=== PATIENT | female | born 1960 | race Caucasian/White ===

== ENCOUNTER → 2019-07-04 | Outpatient (CLI) | payer MEDICARE ==
--- NOTE | 2019-07-04 15:22 | PCVCIMAG ---
EXAM: BILATERAL CAROTID DUPLEX INDICATION: Carotid Occlusive Disease. Status post bilateral carotid endarterectomies. FINDINGS: Doppler Measurements (centimeters per second): RIGHT: Peak CCA-67, Peak ECA-142, Diastolic ICA-24, Peak ICA-116, ICA/CCA Ratio-1.7. LEFT: Peak CCA-61, Peak ECA-388, Diastolic ICA-126, Peak ICA-467, ICA/CCA Ratio-7.7. RIGHT CAROTID: The carotid bulb has moderate plaque. The proximal internal carotid artery shows <40% stenosis. The common carotid artery shows no significant stenosis. The external carotid artery shows 40% stenosis. LEFT CAROTID: The carotid bulb has moderate plaque. The proximal internal carotid artery shows >90% stenosis. The common carotid artery shows no significant stenosis. The external carotid artery shows 90% stenosis. Antegrade flow in both vertebral arteries. IMPRESSION: <40% stenosis of the right internal carotid artery with moderate plaque. >90% stenosis of the left internal carotid artery with moderate plaque. LOC:[place] [id number]
--- NOTE | 2019-07-04 15:30 | PCVCIMAG ---
EXAM: ARTERIAL DUPLEX LEFT UPPER EXTREMITY INDICATION: Arterial disease. Left arm pain. FINDINGS: Left arm: Increased systolic velocity of 363 cm/s proximal left subclavian artery consistent with 70% stenosis. Mildly blunted arterial waveforms in the mid/distal subclavian, left axillary, left brachial, left radial, and left ulnar arteries without additional stenoses seen. Right arm systolic pressure 166 mmHg and left arm 134 mmHg. IMPRESSION: 70% stenosis proximal left subclavian artery appears to be hemodynamically significant as reviewed above. LOC:[id number]
--- NOTE | 2019-07-05 09:27 | PCVCIMAG ---
APPROVED REPORT Study performed: 07/04/2019 14:50:35 EXAM: Comprehensive 2D, Doppler, and color-flow Echocardiogram Patient Location: Echo lab Room #: 2Status: routine BSA: 1.87 HR: 93 bpmBP: 166/78 mmHg Rhythm: NSR Other Information Study Quality: Fair Risk Factors: Cardiac Risk Factors: HTN, Hyperlipidemia, Smoking Indications CVA/TIA Dyspnea Chest Pain Hypertension/HDD 2D Dimensions IVSd: 9.88 (7-11mm)LVOT Diam: 20.42 (18-24mm) LVDd: 45.64 mm PWd: 7.35 (7-11mm)Ascending Ao: 28.71 (22-36mm) LVDs: 22.94 (25-40mm) Left Atrium: 37.92 (27-40mm) Aortic Root: 24.07 mm LV Single Plane 4CH: 62.81 % LV Single Plane 2CH: 77.39 % Biplane EF: 71.0 % Volumes Left Atrial Volume (Systole) Single Plane 4CH: 31.73 mLSingle Plane 2CH: 23.75 mL Biplane LA Volume: 29.00 mLLA ESV Index: 15.00 mL/m2 Aortic Valve AoV Peak Angelo.: 1.44 m/s AO Peak Gr.: 8.31 mmHgLVOT Max P.53 mmHg LVOT Max V: 0.94 m/s [place] Vmax: 2.13 cm2 Mitral Valve E/A Ratio: 0.7 MV Decel. Time: 210.03 ms MV E Max Angelo.: 0.69 m/s MV A Angelo.: 0.99 m/s IVRT: 72.66 ms TDI E/Lateral E': 9.86E/Medial E': 13.80 Medial E' Angelo.: 0.05 m/s Lateral E' Angelo.: 0.07 m/s Pulmonary Valve PV Peak Angelo.: 0.96 m/sPV Peak Gr.: 3.66 mmHg Pulmonary Vein P Vein S: 0.67 m/sP Vein A: 0.54 m/s P Vein D: 0.37 m/sP Vein A Dur.: 72.7 msec P Vein S/D Ratio: 1.81 Tricuspid Valve TV Vmax: 0.57 m/s Left Ventricle The left ventricle is normal size. There is normal LV segmental wall motion. There is normal left ventricular wall thickness. Left ventricular systolic function is hyperdynamic. LVEF is >70%. Grade I - abnormal relaxation pattern. Findings suggest the left atrial pressure is elevated. Right Ventricle The right ventricle is normal size. The right ventricular systolic function is normal. Atria The left atrium size is normal. The right atrium size is normal. Aortic Valve The aortic valve is normal in structure. No aortic regurgitation is present. There is no aortic valvular stenosis. Mitral Valve The mitral valve is normal in structure. There is no mitral valve regurgitation noted. No evidence of mitral valve stenosis. Tricuspid Valve The tricuspid valve is normal in structure. No apparent pulmonary hypertension. No tricuspid regurgitation. Pulmonic Valve The pulmonary valve is normal in structure. There is no pulmonic valvular regurgitation. Great Vessels The aortic root is normal in size. The ascending aorta is normal in size. Aortic arch is normal in caliber. IVC is normal in size and collapses >50% with inspiration. Pericardium There is no pericardial effusion. There is no pleural effusion. <Conclusion> The left ventricle is normal size. There is normal left ventricular wall thickness. Left ventricular systolic function is hyperdynamic. Grade I - abnormal relaxation pattern. The right ventricle is normal size. The left atrium size is normal. The right atrium size is normal. The aortic valve is normal in structure. The mitral valve is normal in structure. No apparent pulmonary hypertension. No tricuspid regurgitation.
== END | disposition home or self-care (01) ==
LOC: PCVCIMAG 13:24
PROVIDERS: ATTEND Internal Medicine Cardiovascular Disease
DX: I65.23 Occlusion and stenosis of bilateral carotid arteries (principal); I73.9 Peripheral vascular disease, unspecified; R09.89 Other specified symptoms and signs involving the circulatory and respiratory systems; M79.602 Pain in left arm; R06.00 Dyspnea, unspecified; R07.9 Chest pain, unspecified; I10 Essential (primary) hypertension; I63.9 Cerebral infarction, unspecified; I25.10 Atherosclerotic heart disease of native coronary artery without angina pectoris; E11.9 Type 2 diabetes mellitus without complications; F17.200 Nicotine dependence, unspecified, uncomplicated; I77.1 Stricture of artery; Z79.82 Long term (current) use of aspirin; Z79.899 Other long term (current) drug therapy; Z88.8 Allergy status to other drugs, medicaments and biological substances; Z72.89 Other problems related to lifestyle
CPT/HCPCS: 93306; 93880; 93931; G0463

== ENCOUNTER → 2019-07-11 | Outpatient (CLI) | payer MEDICARE, MEDICAID | END | disposition home or self-care (01) | LOC: PCVCCLINIC 15:13 | PROVIDERS: ATTEND Nuclear Medicine Nuclear Cardiology | DX: I77.1 Stricture of artery (principal); I77.9 Disorder of arteries and arterioles, unspecified; I25.10 Atherosclerotic heart disease of native coronary artery without angina pectoris; I10 Essential (primary) hypertension; E78.00 Pure hypercholesterolemia, unspecified; Z88.8 Allergy status to other drugs, medicaments and biological substances; J44.9 Chronic obstructive pulmonary disease, unspecified | CPT/HCPCS: G0463 ==

== ENCOUNTER → 2019-09-19 | Outpatient (CLI) | payer MEDICARE, MEDICAID ==
--- NOTE | 2019-09-19 09:10 | PCVCIMAG ---
APPROVED REPORT Laterality: Bilateral Indications Stenosis Doppler Spectral Velocity Analysis PSV / EDVPSV / EDV ECA (R) 251 / 31 cm/sECA (L) 326 / 38 cm/s dICA (R) 87 / 23 cm/sdICA (L) 58 / 14 cm/s [place] (R) 117 / 30 cm/smICA (L) 56 / 15 cm/s pICA (R) 101 / 22 cm/spICA (L) 59 / 15 cm/s Bulb (R) 84 / 22 cm/sBulb (L) 82 / 17 cm/s dCCA (R) 69 / 17 cm/sdCCA (L) 96 / 17 cm/s mCCA (R) 79 / 15 cm/smCCA (L) 133 / 20 cm/s Vert (R) 51 / 12 cm/sVert (L) 64 / 17 cm/s ICA/CCA 1.70ICA/CCA 0.61 Findings The right carotid bulb has moderate plaque. The right proximal internal carotid artery shows <40% stenosis. The right common carotid artery shows no significant stenosis. The right external carotid artery shows no significant stenosis. The left carotid bulb has mild plaque. The left proximal internal carotid artery shows no significant stenosis; widely patent stent. The left common carotid artery shows <40% stenosis. The left external carotid artery shows >90% stenosis. Conclusion 1. Right internal carotid artery stenosis (<40%) 2. Widely patent left common and internal carotid artery stent 3. Left common carotid artery stenosis (<40%). 4. Antegrade vertebral flow
--- NOTE | 2019-09-19 10:14 | PCVCIMAG ---
EXAM: BILATERAL LOWER EXTREMITY ARTERIAL DUPLEX INDICATION: Peripheral Arterial Disease. Leg pain. FINDINGS: Right Leg: Common femoral and profunda femoral arteries are patent. Multiple areas of high-grade stenosis throughout the superficial femoral artery as seen on previous angiogram. Popliteal artery is patent. Note is made of previous moderate stenosis upper popliteal artery stent or recent angiogram not appreciated on ultrasound. The anterior tibial, peroneal, posterior tibial arteries are patent. Left Leg: Common femoral and profunda femoral arteries are patent. Occlusion throughout the proximal/mid [place] left superficial femoral artery. Refilling of the distal superficial femoral artery. Popliteal artery is patent. The anterior tibial, peroneal, and posterior tibial arteries are patent. IMPRESSION: Multiple high-grade stenoses throughout the [place] right superficial femoral artery as seen on previous angiogram. Complete occlusion proximal/mid [place] left superficial femoral artery with refilling of the distal left superficial femoral artery. LOC:[id number]
== END | disposition home or self-care (01) ==
LOC: PCVCIMAG 08:33
PROVIDERS: ATTEND Nuclear Medicine Nuclear Cardiology
DX: I65.23 Occlusion and stenosis of bilateral carotid arteries (principal); I70.202 Unspecified atherosclerosis of native arteries of extremities, left leg; I25.10 Atherosclerotic heart disease of native coronary artery without angina pectoris; I10 Essential (primary) hypertension; E78.00 Pure hypercholesterolemia, unspecified; E11.9 Type 2 diabetes mellitus without complications; J44.9 Chronic obstructive pulmonary disease, unspecified; M81.0 Age-related osteoporosis without current pathological fracture; I70.1 Atherosclerosis of renal artery; F17.210 Nicotine dependence, cigarettes, uncomplicated; Z72.89 Other problems related to lifestyle; Z88.8 Allergy status to other drugs, medicaments and biological substances; Z79.4 Long term (current) use of insulin; Z86.73 Personal history of transient ischemic attack (TIA), and cerebral infarction without residual deficits; Z79.82 Long term (current) use of aspirin; Z79.899 Other long term (current) drug therapy; Z82.49 Family history of ischemic heart disease and other diseases of the circulatory system
CPT/HCPCS: 93005; 93880; 93925; G0463